=== PATIENT | female | born 1990 ===

== ENCOUNTER 2025-07-16 10:27 | Emergency (ER) | payer SELFPAY ==
[2025-07-16] MEDS ORDERED: Multivitamins, Adult 10 ML, Thiamine HCl 100 MG, Folic Acid 1 MG in Dextrose 5 %-0.45 %... IV SCH (11:30)
[2025-07-16 11:53] LABS: #Basophils 0.05 10x3/uL (0.0-0.2); #Eosinophils 0.05 10x3/uL (0.0-0.7); #Monocytes 0.57 10x3/uL (0.11-0.59); #Neutrophils 3.31 10x3/uL (1.40-6.50); %Basophils 0.9 % (0.0-1.0); %Eosinophils 0.9 % (0.0-10.0); %Lymphocytes 30.7 % (21.0-51.0); %Monocytes 9.9 % (0.0-10.0); %Neutrophils 57.4 % (42.0-75.0); Hematocrit 36.9 % (36.0-47.0); Hemoglobin 12.9 g/dL (12.0-16.0); Mean Corpuscular Hemoglobin 32.7 pg (27.0-31.0); Mean Corpuscular Volume 93.4 fL (78.0-98.0); Platelet Count 262 10x3/uL (130-400); Red Blood Cell (RBC) Count 3.95 mill/uL (4.20-5.40); White Blood Cell (WBC) Count 5.76 10x3/uL (4.8-10.8)
[2025-07-16 12:08] LABS: ALT (SGPT) 129 U/L (Less than 34); AST (SGOT) 88 U/L (11-34); Albumin 3.9 g/dL (3.1-4.5); Alkaline Phosphatase 74 U/L (40-110); Anion Gap 15 mmol/L (10-20); BUN (Urea Nitrogen) 6 mg/dL (7.0-18.7); Bilirubin, Total 0.9 mg/dL (0.3-1.2); Calc. Creatinine Clearance 0 mL/min (70-130); Calcium 8.0 mg/dL (7.8-10.44); Carbon Dioxide 20 mmol/L (22-29); Chloride 104 mmol/L (98-107); Globulin 2.6 g/dL (2.4-3.5); Glucose 82 mg/dL (70-105); Potassium 2.9 mmol/L (3.5-5.1); Sodium 136 mmol/L (136-145)
[2025-07-16 12:09] LABS: Acetaminophen Less than 10 mcg/mL (Less than 10); Salicylate Less than 8.0 mg/dL (Less than 8.0)
[2025-07-16 12:15] LABS: BHCG - Serum Negative (NEGATIVE); Pregs Control Background? CLEAR/WHITE (CLR/WHITE); Pregs Control Bar Appear? YES (CONTROL BAR)
[2025-07-16 13:08] LABS: Bacteria/HPF None Seen HPF (None Seen); CAUTI Indications for Culture Alt mental st,lethar; Glucose, Urine (Dipstick) Normal (Negative); Leukocyte Negative Leu/uL (Negative); Protein, Urine (Dipstick) Negative (Neg-Trace); RBC/HPF 0-3 HPF (0-3); Specific Gravity, Urine 1.003 (1.002-1.036); WBC/HPF 0-3 HPF (0-3)
[2025-07-16 13:11] LABS: Urine Culture Reflex No No
[2025-07-16 13:13] LABS: Cocaine Metabolite Screen Negative (Negative); THC/Cannabinoid Screen Negative (Negative); Tricyclic Screen Negative (Negative)
[2025-07-16] MEDS ORDERED: Potassium Chloride 20 MEQ (100 mL) BAG ONE (14:18)
== END 2025-07-16 18:38 | disposition home or self-care (01) ==
LOC: ERS 10:27
DX: F10.129 Alcohol abuse with intoxication, unspecified (principal); F17.290 Nicotine dependence, other tobacco product, uncomplicated; Y90.8 Blood alcohol level of 240 mg/100 ml or more
CPT/HCPCS: 36415; 36416; 70450; 71045; 80053; 80306; 80307; 81001; 84703; 85025; 93005; 94760; 96365; J3411; J3480; J7042